=== PATIENT | male | born 1995 | race Caucasian/White ===

== ENCOUNTER 2016-03-22 12:50 | Emergency (ER) | payer MEDICAID ==
[~2016-03-22] VITALS: Ht 170.2 cm; Wt 76.5 kg
[2016-03-22 12:54] VITALS: Ht 170.2 cm; Wt 76.5 kg
[2016-03-22] MEDS ORDERED: LEVALBUTEROL (NEB) 1.25 MG/0.5 ML AMP HHN ONE (14:00)
[2016-03-22] MEDS ORDERED: IPRATROPIUM (NEB) 0.5 MG/2.5 ML AMP HHN ONE (14:00)
[2016-03-22] MEDS ORDERED: DEXAMETHASONE 10 MG/ML 1 ML INJ IM ONE (14:00)
--- NOTE | 2016-03-22 14:52 | RADRPT ---
PROCEDURE: Chest Radiograph. CLINICAL INDICATION: Cough TECHNIQUE: Single frontal chest radiograph. COMPARISON: None available FINDINGS: The cardiomediastinal silhouette is within normal limits. No infiltrate or effusion is seen. Th e bones are intact. IMPRESSION: 1. Unremarkable chest radiograph. RPTAT: KK .Tres David MD, Date Time Electronically viewed and signed by .Tres David MD, on 03/22/2016 14:50 .B/
[2016-03-22 15:08] VITALS: PULSE 110; RESP 22
[2016-03-22] MEDS ORDERED: ALBU8.5H3 INH (15:31)
[2016-03-22] MEDS ORDERED: BENZ100C70 PO (15:31)
[2016-03-22] MEDS ORDERED: CETI10CA PO (15:31)
--- NOTE | 2016-03-22 15:36 | ERD ---
ER Documentation Chief Complaint Date/Time DATE: 03/22/16 TIME: 15:32 Chief Complaint cough and congestion HPI Patient is a 20-year-old male who presents to the ED for cough, congestion for 3 weeks. He states that he was seen at his primary care per providers office 2 weeks ago and was given amoxicillin for an unknown infection. He states that he finished the amoxicillin last week, unsure of which day and his symptoms got better however he states that he now has a dry cough. He states that originally he had a productive cough but now complains of a dry cough. He denies any fever or chills. Denies abdominal pain, nausea, vomiting or diarrhea. He states that he also has congestion and has mild shortness of breath with coughing. He denies leg pain or swelling. Denies recent travel. Denies chest pain. Denies headache dizziness or ear pain. He is not taking any other medications for his symptoms. ROS All systems reviewed and are negative except as per history of present illness. Medications Home Meds Active Scripts Cetirizine Hcl* (Zyrtec*) 10 Mg Capsule, 10 MG PO DAILY, #10 TAB.CHEW Prov:YASMINE ALVES PA-C 03/22/16 Albuterol Sulfate* (Proair HFA*) 8.5 Gm Hfa.aer.ad, 2 PUFF INH Q4, #1 INHALER Prov:YASMINE ALVES PA-C 03/22/16 Benzonatate* (Tessalon Perle*) 100 Mg Capsule, 100 MG PO Q8H Y for COUGH for 14 Days, CAP Prov:YASMINE ALVES PA-C 03/22/16 Allergies Allergies: Coded Allergies: No Known Allergy (Unverified , 03/22/16) PMhx/Soc Medical and Surgical Hx: pt denies Medical Hx, pt denies Surgical Hx History of Surgery: Yes (tonsils) Anesthesia Reaction: No Hx Neurological Disorder: No Hx Respiratory Disorders: No Hx Cardiac Disorders: No Hx Psychiatric Problems: No Hx Miscellaneous Medical Probl: No Hx Alcohol Use: No Hx Substance Use: No Hx Tobacco Use: No Smoking Status: Never smoker FmHx Family History: No coronary disease, No diabetes, No other Physical Exam Vitals Vital Signs Date Time Temp Pulse Resp B/P Pulse Ox O2 Delivery O2 Flow Rate FiO2 03/22/16 15:08 110 22 96 Room Air 03/22/16 14:16 89 18 95 21 03/22/16 12:54 98.5 101 18 133/66 94 Physical Exam GENERAL: Well-developed, well-nourished male. Appears in no acute distress. HEAD: Normocephalic, atraumatic. EYES: Pupils are equally reactive bilaterally. EOMs grossly intact. No conjunctival erythema. ENT: Moist mucous membranes. No uvula deviation. No kissing tonsils. No exudates. NECK: Supple. No lymphadenopathy or thyromegaly. No meningismus. LUNG: Clear to auscultation bilaterally. No rhonchi, coarse breath sounds, wheezing bilaterally. no retractions, nasal flaring or signs of respiratory distress HEART: Regular rate and rhythm. No murmurs, rubs or gallops. Extremities: Equal pulses bilaterally. No peripheral clubbing, cyanosis or edema. No unilateral leg swelling. Negative Homans sign NEUROLOGIC: Alert and oriented. Moving all four extremities. 5/5 strength in all extremities. Normal speech. Steady gait. SKIN: Normal color. Warm and dry. No rashes or lesions. Capillary refill < 2 seconds Results 24 hrs Current Medications Medications (Trade) Dose Ordered Sig/Seth Route PRN Reason Start Time Stop Time Status Last Admin Dose Admin Levalbuterol (Xopenex Neb) 2.5 mg ONCE ONCE HHN 03/22/16 14:00 03/22/16 14:01 DC 03/22/16 14:00 Ipratropium [place] (Atrovent 0.02% (Neb)) 0.5 mg ONCE ONCE HHN 03/22/16 14:00 03/22/16 14:01 DC 03/22/16 14:00 Dexamethasone (Decadron) 10 mg ONCE ONCE IM 03/22/16 14:00 03/22/16 14:01 DC 03/22/16 14:12 Procedures/MDM ER COURSE: I kept the patient and/or family informed of laboratory and diagnostic imaging results throughout the emergency room course. EKG, MONITORS, & DIAGNOSTIC IMAGING: [place] [id number] Radiology Main Line: [phone] DIAGNOSTIC IMAGING REPORT Patient: MAXX ALVARENGA : 1995 Age: 20 Sex: M MR #: [id number] DOS: 03/22/16 1352 Ordering MD: YASMINE ALVES PA-C Location: [facility] Room/Bed: PROCEDURE: Chest Radiograph. CLINICAL INDICATION: Cough TECHNIQUE: Single frontal chest radiograph. COMPARISON: None available FINDINGS: The cardiomediastinal silhouette is within normal limits. No infiltrate or effusion is seen. The bones are intact. IMPRESSION: 1. Unremarkable chest radiograph. RPTAT: KK .Tres David MD, MD Date Time Electronically viewed and signed by .Tres David MD, MD on 2016 14:50 .B/ CC: YASMINE ALVES PA-C PROCEDURES: RT consult. Atrovent and Xopenex given to patient. Patient stated improvement in symptoms. MEDICATIONS: Decadron 10 mg IM. Patient tolerated medication well MEDICAL DECISION MAKING: This is a 20-year-old male who presents with cough and wheezing. Vital signs were reviewed. Patient is afebrile. Patient is not hypoxic. Patient is not toxic or ill-appearing temperature 98.5, O2 sat 94, pulse 101, blood pressure 133/66. Oxygen saturation has increased to 96% after breathing treatment. Patient likely has cough of uncertain etiology likely viral versus asthma exacerbation. Low suspicion for pneumonia, PE, pneumothorax, ACS, epiglottitis , obstruction, TB, pertussis. She does not show signs of respiratory distress, nasal flaring or retractions. Patient seen improvement after Atrovent and Xopenex were given to patient. Low suspicion for ACS, PE, AAA, dissection, DVT. Low suspicion for peritonsillar abscess, strep pharyngitis, mononucleosis , dental abscess. I do not think patient needs to be admitted at this time as he does not show signs of respiratory distress or infection. I do not think patient needs IV hydration at this time. DISCHARGE: At this time, patient is stable for discharge and outpatient management with no new complaints during the ER course. Patient was sent home with Tessalon Perles , Zyrtec and albuterol. Patient will be discharged home with instructions to recheck for new or worsening symptoms such as fever, nausea, weakness, LOC and to follow up with primary care in the next 1-2 days. Patient was advised to return to the ER for any new or worsening symptoms. Plan was discussed and patient and/or family understands and agrees. Home instructions were given. Departure Diagnosis: Primary Impression: Cough Condition: Stable Additional Instructions: Call your primary care doctor TOMORROW for an appointment during the next 1-2 days.See the doctor sooner or return here if your condition worsens before your appointment time. YASMINE ALVES PA-C Mar 22, 2016 15:36
== END 2016-03-22 15:45 | disposition home or self-care (01) ==
LOC: FTE 12:50
DX: R05 Cough (principal)
CPT/HCPCS: 71010; 94664; 96372; J1100; Z7502; Z7610

== ENCOUNTER 2016-07-20 23:07 | Emergency (ER) | payer MEDICAID, OTHER ==
[~2016-07-20] VITALS: Ht 162.6 cm; Wt 76.5 kg
[~2016-07-20 23:07] MED LIST: ALBU8.5H3 INH; BENZ100C70 PO; CETI10CA PO
[2016-07-20 23:10] VITALS: Ht 162.6 cm; Wt 76.5 kg
[2016-07-21] MEDS ORDERED: IPRATROPIUM (NEB) 0.5 MG/2.5 ML AMP NEB STA (03:40)
[2016-07-21] MEDS ORDERED: ALBUTEROL 0.083% (NEB) 2.5 MG/3 ML AMP NEB STA (03:40)
[2016-07-21] MEDS ORDERED: METHYLPREDNISOLONE 125 MG INJ IM STA (03:40)
--- NOTE | 2016-07-21 04:38 | RADRPT ---
PROCEDURE: Chest. CLINICAL INDICATION: Chest pain. TECHNIQUE: Single frontal view of the chest was obtained. COMPARISON: 03/22/2016. FINDINGS: The cardiac silhouette is within normal limits. The aortic arch is unremarkable. There is no focal consolidation, vascular congestion or pleural effusion. There is no pneumothorax. IMPRESSION: No evidence for active cardiopulmonary disease. .Tulio Myers MD, Date Time Electronically viewed and signed by .Tulio Myers MD, on 07/21/2016 04:38 .T/
[2016-07-21 05:06] VITALS: PULSE 85
--- NOTE | 2016-07-21 05:08 | ERD ---
ER Documentation Chief Complaint Date/Time DATE: 07/21/16 TIME: 05:02 Chief Complaint cough x 2 weks HPI 20-year-old male presents here in emergency department for complaints of cough for 2 weeks. dry cough with on and off wheezing, used albuterol at home w/ only mild relief. denies fever or chills, denies sick contact, denies chest pain / palpitations. Patient denies any dyspnea on exertion or dyspnea on lying down. Patient has history of asthma ROS All systems reviewed and are negative except as per history of present illness. Medications Home Meds Active Scripts Cetirizine Hcl* (Zyrtec*) 10 Mg Capsule, 10 MG PO DAILY, #30 TAB.CHEW Prov:TAI NEWMAN NP 07/21/16 Prednisone* (Prednisone*) 50 Mg Tablet, 50 MG PO DAILY for 5 Days, TAB Prov:TAI NEWMAN NP 07/21/16 Troqctdnmxo-F-Mqqpvdvsic Hb* (Guaifenesin* DM Syrup) 120 Ml Syrup, 10 ML PO Q4H Y for COUGH, #120 ML Prov:TAI NEWMAN NP 07/21/16 Fluticasone Propionate (Flonase Allergy Relief) 9.9 Ml [place].susp, 1 SPRAY NASAL BID, #1 BOTTLE TO EACH NOSTRIL Prov:TAI NEWMAN NP 07/21/16 Albuterol Sulfate* (Proair HFA*) 8.5 Gm Hfa.aer.ad, 2 PUFF INH Q4H Y for WHEEZING AND SOB, #1 INHALER Prov:TAI NEWMAN NP 07/21/16 Cetirizine Hcl* (Zyrtec*) 10 Mg Capsule, 10 MG PO DAILY, #10 TAB.CHEW Prov:YASMINE ALVES-C 03/22/16 Albuterol Sulfate* (Proair HFA*) 8.5 Gm Hfa.aer.ad, 2 PUFF INH Q4, #1 INHALER Prov:YASMINE ALVES PA-C 03/22/16 Benzonatate* (Tessalon Perle*) 100 Mg Capsule, 100 MG PO Q8H Y for COUGH for 14 Days, CAP Prov:YASMINE ALVES PA-C 03/22/16 Allergies Allergies: Coded Allergies: No Known Allergy (Unverified , 03/22/16) PMhx/Soc History of Surgery: Yes (tonsillectomy) Anesthesia Reaction: No Hx Neurological Disorder: No Hx Respiratory Disorders: Yes (asthma) Hx Cardiac Disorders: No Hx Psychiatric Problems: No Hx Miscellaneous Medical Probl: No Hx Alcohol Use: No Hx Substance Use: No Hx Tobacco Use: No Smoking Status: Never smoker FmHx Family History: No coronary disease, No diabetes, No other Physical Exam Vitals Vital Signs Date Time Temp Pulse Resp B/P Pulse Ox O2 Delivery O2 Flow Rate FiO2 07/21/16 05:06 85 98 Room Air 07/21/16 04:00 89 20 93 21 07/20/16 23:10 97.7 80 20 135/65 98 Physical Exam GENERAL: The patient is well developed and appropriate for usual state of health, in no apparent distress. CHEST: Diffuse wheezing noted bilateral lungs. There are no rales, crackles or rhonchi. HEART: Regular rate and rhythm. No murmurs, clicks, rubs or gallops. No S3 or S4. ABDOMEN: Soft, nontender and nondistended. Good bowel sounds. No rebound or guarding. No gross peritonitis. No gross organomegaly or masses. No M[place]olejo sign or McBurney point tenderness. BACK: No midline or flank tenderness. EXTREMITIES: Equal pulses bilaterally. There is no peripheral clubbing, cyanosis or edema. No focal swelling or erythema. Full range of motion. Grossly neurovascularly intact. NEURO: Alert and oriented. Cranial nerves 2-12 intact. Motor strength in all 4 extremities with 5/5 strength. Sensation grossly intact. Normal speech and gait. SKIN: There is no apparent rash or petechia. The skin is warm and dry. HEMATOLOGIC AND LYMPHATIC: There is no evidence of excessive bruising or lymphedema. No gross cervical, axillary, or inguinal lymphadenopathy. Results 24 hrs Current Medications Medications (Trade) Dose Ordered Sig/Seth Route PRN Reason Start Time Stop Time Status Last Admin Dose Admin Albuterol (Proventil 0.083% (Neb)) 5 mg ONCE STAT NEB 07/21/16 03:40 07/21/16 03:41 DC 07/21/16 03:57 Ipratropium [place] (Atrovent 0.02% (Neb)) 0.5 mg ONCE STAT NEB 07/21/16 03:40 07/21/16 03:41 DC 07/21/16 03:57 Methylprednisolone Sodium Succinate (Solu-Medrol) 125 mg ONCE STAT IM 07/21/16 03:40 07/21/16 03:41 DC 07/21/16 04:01 Breathing treatment of albuterol and Atrovent Solu-Medrol IM injection was given here in emergency department, after treatment, patient's lungs sounds are clear and patient's oxygenation is better. Patient verbalized feeling much better. PROCEDURE: Chest. CLINICAL INDICATION: Chest pain. TECHNIQUE: Single frontal view of the chest was obtained. COMPARISON: 03/22/2016. FINDINGS: The cardiac silhouette is within normal limits. The aortic arch is unremarkable. There is no focal consolidation, vascular congestion or pleural effusion. There is no pneumothorax. IMPRESSION: No evidence for active cardiopulmonary disease. .Tulio Myers MD, Date Time Electronically viewed and signed by .Tulio Myers MD, on 07/21/2016 04:38 .T/ CC: TAI NEWMAN MANAGER BALANCE Procedures/MDM Medical Decision Making: Patient symptoms are most likely consistent with acute bronchitis with acute asthma exacerbation, which viral in origin. There is low suspicion for Pneumonia at this time since patients lungs sounds are clear, patient O2 saturation is normal and patient doesnt show any respiratory distress. Patients chest xray doesnt show infiltrates or any other cardiopulmonary emergencies at this time. There is low suspicion for other cardiopulmonary emergencies at this time such as CHF, Pulmonary Embolism, Pneumothorax, or any other cardiopulmonary emergencies at this time. There is low suspicion for sepsis. Patient appears well and is hemodynamically stable. Patient does not have any fever. Disposition: Home. Condition: Stable Prescriptions: Albuterol, guaifenesin DM Zyrtec prednisone, flonase Instructions: Patient is advised to take medications as prescribed. Patient is advised to rest. Patient advised to increase fluid intake, do humidifier at home and if possible, do salt water gargles. Patient is advised that if symptoms are worse, shortness of breath, uncontrolled fever, stridor, vomiting, worst signs and symptoms to return to emergency department immediately. Otherwise, patient is advised to follow up with primary doctor in 5-7 days. Departure Diagnosis: Primary Impression: Acute bronchitis Bronchitis organism: unspecified organism Qualified Code: J20.9 - Acute bronchitis, unspecified organism Additional Impression: Acute asthma exacerbation Asthma severity: unspecified severity Qualified Code: J45.901 - Asthma with acute exacerbation, unspecified asthma severity Condition: Stable Patient Instructions: Bronchitis With Wheezing (Adult) Additional Instructions: Patient is advised to take medications as prescribed. Patient is advised to rest. Patient advised to increase fluid intake, do humidifier at home and if possible, do salt water gargles. Patient is advised that if symptoms are worse, shortness of breath, uncontrolled fever, stridor, vomiting, worst signs and symptoms to return to emergency department immediately. Otherwise, patient is advised to follow up with primary doctor in 5-7 days. TAI NEWMAN NP July 21, 2016 05:08
[2016-07-21] MEDS ORDERED: GUAI120S26 PO (05:09)
[2016-07-21] MEDS ORDERED: CETI10CA PO (05:09)
[2016-07-21] MEDS ORDERED: FLUT9.9S NASAL (05:09)
[2016-07-21] MEDS ORDERED: PRED50TA PO (05:09)
[2016-07-21] MEDS ORDERED: ALBU8.5H3 INH (05:09)
== END 2016-07-21 05:18 | disposition home or self-care (01) ==
LOC: FTE 23:07
DX: J20.9 Acute bronchitis, unspecified (principal); J45.901 Unspecified asthma with (acute) exacerbation
CPT/HCPCS: 71010; 94664; 96372; J2930; Z7502; Z7610